=== PATIENT | female | born 1995 | race Caucasian/White ===

== ENCOUNTER 2020-04-05 16:22 | Emergency (ER) | payer BC, OTHER ==
[2020-04-05 16:31] VITALS: BP 117/74; PULSE 84; TEMP 99; BMI 21.2
--- NOTE | 2020-04-05 16:35 | PDOC ---
History of Present Illness - General Chief Complaint: Laceration Stated Complaint: DOG BITE, LACERATION Time Seen by Provider: 04/05/20 16:25 History Source: Patient Exam Limitations: No Limitations - History of Present Illness Initial Comments: 04/05/20 16:36 [id number] without PMH who p/w dog bite to the tip of the nose sustained last night, for which she was seen at Urgent Care and did not have laceration repair. She notes her own tetanus vaccination is up to date. The dog was a cock-a-poo puppy that is her family's dog, who is up to date on rabies vaccinations, and who is otherwise healthy. She notes the dog became excited and jumped up toward her face, and the tip of one of his teeth got caught on her tip of her right nostril. She notes it bled for a short time and looked like there was about a 0.5 cm cut into the tip of the nose. She denies any other injuries sustained, has no pain now, no active bleeding, no signs of infection. Review of Systems - Review of Systems Able to Perform ROS?: Yes Comments:: 04/05/20 16:39 GEN: no fever, chills, generalized weakness, or malaise HEENT: nose laceration, no ear pain, eye pain, throat pain or swelling, nosebleed, vision change, or loose teeth SKIN: no cuts, abrasions, or bruises CV: no chest pain, palpitations, or LOC RESP: no cough or SOB GI: no abdominal pain, nausea, vomiting, or black/bloody stool : no hematuria or flank pain/bruising MSK: no muscle weakness, muscle pain, joint pain, or joint swelling NECK/BACK: no neck pain, back pain, or trauma reported NEURO: no headache, seizure, numbness, tingling, focal weakness, or incontinence PSYCH: no suicidality, homicidality, or substance use *Physical Exam - Vital Signs Initial Vital Signs Temp Pulse Resp BP Pulse Ox 99 F 84 18 117/74 100 04/05/20 16:24 04/05/20 16:24 04/05/20 16:24 04/05/20 16:24 04/05/20 16:24 - Physical Exam 04/05/20 16:39 GENERAL: well-appearing, A/Ox4, no distress, answers questions appropriately, pleasant young adult woman HEENT: right medial external nostril with scabbed area just anterior/lateral to the septum, without active bleeding, no purulent drainage, no surrounding erythema or warmth or induration or fluctuance, no tenderness to palpation, interior of nares without laceration or abrasion or other e/o trauma, PERRLA, EOMI, moist mucous membranes NECK/BACK: no midline ttp, no spinal step-off or deformity, no hematoma, full ROM, neck supple CARDIOVASCULAR: regular rate/rhythm, no MGR, strong peripheral pulses, capillary refill <2 seconds, extremities wwp, no edema LUNGS/RESPIRATORY: no respiratory distress, CTAB GI/ABDOMEN: symmetric [id number], normoactive BS, soft, no ttp, no midline pulsatile masses : no CVA tenderness MSK/EXTREMITIES: no muscle atrophy, no acute deformity SKIN: warm and dry, no pallor, no jaundice, no rash, no pathologic-appearing bruising, no skin breakdown, no cuts, no lesions NEUROLOGICAL: GCS 15, CN II-XII grossly intact, 5/5 strength proximally and distally, no facial droop Medical Decision Making - Medical Decision Making 04/05/20 16:41 [id number] without PMH who p/w minor dog bite with small laceration to tip of nose, outside the 12h range, not large or dehiscent, minimal cartilage involvement if any. This laceration is 0.5 cm length at most. Initial Vital Signs Temp Pulse Resp BP Pulse Ox 99 F 84 18 117/74 100 04/05/20 16:24 04/05/20 16:24 04/05/20 16:24 04/05/20 16:24 04/05/20 16:24 The patient most likely has uncomplicated soft tissue laceration. There is no bony or cartilaginous deformity. There is no e/o infection and at this point almost 24h has passed. There is no indication for closure with sutures as the laceration has already come together and there is granulation tissue. There is no indication for rabies immunization or immunoglobulin, or for tetanus vaccination as the patient is already UTD. I have discussed with her using Bacitracin ointment x2 days, and I have discussed specific return precautions. She will have wound check on Wednesday and return for any changes. Discharge - Discharge Information Problems reviewed: Yes Clinical Impression/Diagnosis: Dog bite Qualifiers: Encounter type: initial encounter Qualified Code(s): W54.0XXA - Bitten by dog, initial encounter Condition: Stable Disposition: HOME - Admission No - Follow up/Referral Referrals: ON STAFF,NOT [Non Staff, Medical] - - Patient Discharge Instructions Additional Instructions: You were seen in the ER for nose laceration from a dog bite. We did an exam, looked very carefully at the inside of the nose with an otoscope magnifying glass with light, and saw no evidence of active bleeding or laceration that might require repair. We made sure to check that you are up to date on your tetanus vaccination (you already are), and that the dog was a known dog that has his rabies shot (he already had it). After our assessment, we do not believe you are having a medical emergency anymore at this time, and we believe you are safe to go home. Put a thin layer of antibiotic ointment on the wound once in the morning and once in the evening for the next 2 days. Please follow up with your primary care provider to have a wound check on Wednesday. If you have any new or worsening symptoms, especially increasing pain/redness/swelling to the area or other signs of infection like fever or pus drainage, please come back to the ER at any time (24 hours a day). If you are having severe or life threatening symptoms, or symptoms that make it unsafe to drive or have someone drive you, please call 911. - Post Discharge Activity
== END 2020-04-05 16:48 | disposition home or self-care (01) ==
LOC: FER 16:22
DX: S01.20XA Unspecified open wound of nose, initial encounter (principal); W54.0XXA Bitten by dog, initial encounter
CPT/HCPCS: 99283-25